=== PATIENT | female | born 1985 | race Caucasian/White ===

== ENCOUNTER 2021-02-24 15:02 | Emergency (ER) | payer SELFPAY ==
[2021-02-24 16:21] LABS: HEMOGLOBIN 12.9 gm/dl (12.3-15.3); RED BLOOD COUNT 4.24 M/UL (4.00-5.10)
[2021-02-24 16:42] LABS: BUN/CREATININE RATIO 13 (0-10)
== END 2021-02-25 03:55 | disposition short-term general hospital (02) ==
LOC: ER1 15:02
PROVIDERS: Emergency Medicine; Family Medicine
DX: S05.12XA Contusion of eyeball and orbital tissues, left eye, initial encounter (principal); F43.21 Adjustment disorder with depressed mood; R07.89 Other chest pain; R51.9 Headache, unspecified; F17.200 Nicotine dependence, unspecified, uncomplicated; Z20.822 Contact with and (suspected) exposure to COVID-19; Z88.1 Allergy status to other antibiotic agents; Z88.5 Allergy status to narcotic agent; Z59.00 Homelessness unspecified; Z88.0 Allergy status to penicillin; Y04.2XXA Assault by strike against or bumped into by another person, initial encounter
CPT/HCPCS: 70450; 71045; 80053; 80307; 82550; 82553; 83874; 84484; 85025; 85379; 93005; 99285; U0002